=== PATIENT | male | born 1955 | race African-American/Black ===

== ENCOUNTER 2017-08-22 05:54 | Inpatient (IN) | payer MEDICAID ==
[~2017-08-22] VITALS: Ht 185.4 cm; Wt 73.5 kg
--- NOTE | ~2017-08-22 | PR ---
[place], [place] PROGRESS NOTE NAME: SEBAS HOPKINS UNIT #: [id number] ROOM: 314 DOCTOR: TIFFANY CORONEL MD BIRTHDATE: [birth year] DOS: 08/27/2017 CHIEF COMPLAINT: "I am feeling better, thank you." SUMMARY OF THE VISIT: The patient was interviewed in the dining area where he was sitting eating breakfast. He stopped and engaged readily in conversation. He reported that he is feeling better, that his mood is brighter and that the auditory hallucinations have almost completely abated. He does report tolerating the current medication regimen well. He is aware that his family is hoping that he gets into [facility] to address his substance abuse issues and is willing to wait to see if this is something that can occur rapidly. Otherwise, he is feeling ready for discharge. MENTAL STATUS EXAMINATION: He is alert and oriented to person, place and time. Mood does seem to be strongly trending towards euthymia. Affect is much more appropriate. There is no symptom suggestive of glenn or hypomania. There are no acute psychotic symptoms. He is tolerating the current medication regimen well. There are no suicidal thoughts, homicidal thoughts or any self-injurious thoughts. Memory is intact. PLAN: Maintain his current psychotropic regimen. We will explore the possibility of placement into [facility] or similar substance abuse program, discharging then when psychiatrically stable. TIFFANY CORONEL MD CM:PNTRANS [id number] TIFFANY CORONEL MD 08/27/17 1002 interface
--- NOTE | ~2017-08-22 | PR ---
[place], [place] PROGRESS NOTE NAME: SEBAS HOPKINS UNIT #: [id number] ROOM: 314 DOCTOR: TIFFANY CORONEL MD BIRTHDATE: [birth year] DOS: 08/26/2017 CHIEF COMPLAINT: "I am feeling so much better, thank you." SUMMARY OF THE VISIT: The patient was interviewed in the dining area where he was sitting at a table with many male peers. He stopped and engaged in conversation. He reports that he is sleeping solidly through the night, waking up refreshed. He is not feeling any kind of sedation or somnolence. His appetite also has improved. He feels that the negative thoughts in his head have dissipated as have the auditory hallucinations. He convincingly denies medication side effects and notes no sedation, somnolence, extrapyramidal symptoms or tardive dyskinesia. MENTAL STATUS: He is alert and oriented. Mood does seem to be strongly trending towards euthymia. Affect is much more appropriate. There is no glenn or hypomania. There are no gross psychotic symptoms. Memory for the most part is intact. PLAN: I will maintain his current psychotropic regimen, continue to engage in individual and meza milieu activity. We will plan to discharge then when psychiatrically stable. TIFFANY CORONEL MD CM:PNTRANS 0923 TIFFANY CORONEL MD 08/26/17 0959 interface
--- NOTE | ~2017-08-22 | DS ---
[place], [place] DISCHARGE SUMMARY NAME: SEBAS HOPKINS UNIT #: [id number] ROOM: 314 DOCTOR: TIFFANY CORONEL MD BIRTHDATE: [birth year] DOS: 08/28/2017 CHIEF COMPLAINT: "I have been depressed and the voices have been pretty bad. HISTORY OF PRESENT ILLNESS: This is a 61-year-old black male who presented to [facility] Emergency Room with a chief complaint of increased depression as well as persistent auditory hallucinations, some of these hallucinations have been command in nature with the voices stating that he needed to hurt himself or others. The patient states that the depression has worsened over the last month prior to this admission. The patient sees Dr. Mathis at [facility] in the [facility]. Most recently, he has been prescribed Klonopin and Zyprexa, but states that these medicines are no longer effective for him. He endorsed poor sleep with difficulty falling asleep, sleep continuity disturbance, senior consulting manager awakening, anergia, anhedonia, hopeless, helpless feelings, crying spells and inability to cope. In the morning he does not feel rested. He feels constantly tired. The voices are persistent throughout the day as well. They read what he reads and comment on what he is doing. They are very bothersome to him. He is admitted now to rule out any organic factors, to stabilize on medication and then to return to the least restrictive environment. SUMMARY OF HOSPITAL COURSE: The patient was admitted to the unit where his Klonopin and Zyprexa were discontinued due to ineffectiveness. Invega 6 mg in the morning and Remeron 15 mg at night were started to combat the depression and the psychotic symptoms. He tolerated the medications well and almost immediately had an improvement in his sleep pattern. He slept soundly through the night. Initially, he woke up somewhat fatigued, but this quickly passed over the next couple of days. The Invega impacted positively on the hallucinations and at first the frequency and intensity of the hallucinations lessened. They eventually dissipated completely by the time he was ready for discharge. He had tolerated both of the medications well and felt dramatically improved on them, ready to return back home. Family through social work faculty member did request that a consult be made or a referral be made to [facility]. This was done prior to discharge. The patient was discharged then back to [place]. He will follow up also with the [facility] and Dr. Mathis. MENTAL STATUS AT DISCHARGE: The patient is alert and oriented to person, place and time. Mood is euthymic. Affect appropriate. There is no glenn or hypomania. There are no overt auditory or visual hallucinations. No delusions or paranoia. Short, intermediate and long-term memories are intact. FINAL DIAGNOSIS: Major depression, recurrent with psychotic features. PLAN: All of his prescriptions have been e scribed to [facility]. He will have followup at [facility] services in [place]. Medically and psychiatrically he is stable. Psychosocially his needs have been adequately met. [place], [place] DISCHARGE SUMMARY NAME: SEBAS HOPKINS UNIT #: [id number] ROOM: [facility] DOCTOR: TIFFANY CORONEL MD BIRTHDATE: [birth year] TIFFANY CORONEL MD CM:DISCHARG [id number] TIFFANY CORONEL MD 08/28/17 1019 interface
--- NOTE | ~2017-08-22 | PR ---
[place], [place] PROGRESS NOTE NAME: SEBAS HOPKINS UNIT #: [id number] ROOM: 314 DOCTOR: TIFFANY CORONEL MD BIRTHDATE: [birth year] DOS: 08/25/2017 CHIEF COMPLAINT: "I feel better. I do not have any more of that diarrhea, thank you." SUMMARY OF THE VISIT: The patient was interviewed as he was resting quietly in bed. He did report to me this morning that he slept through the night, woke up refreshed, got up, had breakfast and that is now lying back down ready for the day to begin. He convincingly denies medication side effects and states that he is feeling better from a psychiatric standpoint as well. His mood is improving and the voices have lessened in frequency and intensity. He denies sedation, somnolence, extrapyramidal symptoms or tardive dyskinesia. MENTAL STATUS: He is alert and oriented. Mood does seem to be trending towards euthymia. Affect is more appropriate. There is no symptom suggestive of glenn or hypomania. There are no overt auditory or visual hallucinations. No delusions, no paranoia. Short, intermediate, and long-term memory are intact. PLAN: I will maintain his current psychotropic regimen, continue to engage in individual and meza milieu activity, returning to the least restrictive environment when stable. TIFFANY CORONEL MD CM:PNTRANS [id number] TIFFANY CORONEL MD 08/25/17 0935 interface
--- NOTE | ~2017-08-22 | PR ---
[place], [place] PROGRESS NOTE NAME: SEBAS HOPKINS UNIT #: [id number] ROOM: 314 DOCTOR: TIFFANY CORONEL MD BIRTHDATE: [birth year] DOS: 08/23/2017 CHIEF COMPLAINT: "I think I feel a little better." SUMMARY OF THE VISIT: The patient was interviewed after he completed a shower and he was getting dressed. He stopped and engaged in conversation and reported that he did sleep better last night and feels more rested this morning. He ate a good breakfast. He reports that the frequency and intensity of the voices in his head has lessened and he is more comfortable during the day. He is still depressed, but feels positive that he is getting better. He denies any medication side effects. MENTAL STATUS: He is alert and oriented to person, place and time. Mood does seem to be trending towards euthymia. Affect is more appropriate. There is no glenn or hypomania. There is no significant worsening of auditory hallucinations. In fact, they seem to be lessening. Memory for the most part is intact. PLAN: I will maintain his current dose of Remeron and Invega, continue to engage in individual and meza milieu activity with the ultimate plan to return to the least restrictive environment when psychiatrically stable. TIFFANY CORONEL MD CM:PNTRANS 1013 [id number] TIFFANY CORONEL MD 08/23/17 1021 interface
--- NOTE | ~2017-08-22 | WRIGHTHP ---
[place], [place] PATIENT HISTORY AND PHYSICAL EXAM NAME: SEBAS HOPKINS UNIT #: [id number] ROOM: 314 DOCTOR: TIFFANY CORONEL MD BIRTHDATE: [birth year] DOS: 08/22/2017 INITIAL PSYCHIATRIC EVALUATION CHIEF COMPLAINT: "Yeah, I have been so depressed and the voices have been pretty bad." HISTORY OF PRESENT ILLNESS: This is a 61-year-old black male who presented to [facility] Emergency Room with a chief complaint of increased depression as well as auditory hallucinations, some of the command nature with the voices stating that he was going to hurt himself or others. The patient did state that the depression was worsening over the last month prior to this admission. He does see Dr. Mathis at [facility] and most recently was prescribed Klonopin and Zyprexa, but states that these medications were no longer working. He endorsed poor sleep with difficulty falling asleep, sleep continuity disturbance, alternative education teacher awakening, anergia, anhedonia, hopeless, helpless feelings, crying spells and inability to cope. He reports that in the morning when he wakes up, he feels somewhat rested, but is not at his baseline level. He also endorses currently voices that read what he reads and at times comment on what he does, they will tell him to do things. He was somewhat hesitant to share this with me, but he did share with nursing that he does hear command hallucinations, but is able to resist the commands. He reports no previous psychiatric hospitalizations. He is admitted now to rule out organic factors, to stabilize on medication, to engage in individual and meza milieu activity with the ultimate plan to return to the least restrictive environment when psychiatrically stable. MENTAL STATUS: Upon admission, the patient is alert and oriented. Mood does seem to be very depressed. He has a rather constricted range of affect. He endorses auditory hallucinations, some command, but does not feel he can act on them. He also endorses multiple neurovegetative symptoms. There is no glenn or hypomania noted. Memory for the most part seems intact. DIAGNOSIS: Major depression, recurrent with psychotic features. PLAN: I have discontinued his Klonopin and his Zyprexa due to ineffectiveness. I will start him on Invega 6 mg in the morning and Remeron 15 mg at night to combat the depression and the psychotic symptomatology. We will engage in individual and meza milieu activity with the ultimate plan to return to the least restrictive environment when psychiatrically stable. [place], [place] PATIENT HISTORY AND PHYSICAL EXAM NAME: SEBAS HOPKINS UNIT #: [id number] ROOM: [facility] DOCTOR: TIFFANY CORONEL MD BIRTHDATE: [birth year] TIFFANY CORONEL MD CM:HISPHYS:PATIENT HISTORY AND PHYSICAL EXAMINATION [id number] TIFFANY CORONEL MD 08/23/17 1055 interface
--- NOTE | ~2017-08-22 | PR ---
[place], [place] PROGRESS NOTE NAME: SEBAS HOPKINS UNIT #: [id number] ROOM: 314 DOCTOR: TIFFANY CORONEL MD BIRTHDATE: [birth year] DOS: 08/24/2017 CHIEF COMPLAINT: "I feel better, but I had diarrhea all night." SUMMARY OF THE VISIT: The patient was interviewed as he rested quietly in bed. He reports that psychiatrically he is feeling better and he is sleeping better, eating better and his mood does seem to be more stable. He did complain, however, of having persistent diarrhea throughout the night and this was rather bothersome. His stomach is a little queasy this morning, but he is not grossly nauseated. MENTAL STATUS: He is alert and oriented. Mood does seem to be trending towards euthymia. Affect is more appropriate. There is no glenn or hypomania. There are no overt auditory or visual hallucinations, delusions or paranoia. Short, intermediate and long-term memory are intact. PLAN: I will continue his current psychotropic regimen, continue to engage in individual and meza milieu activity, returning to the least restrictive environment when psychiatrically stable. TIFFANY CORONEL MD CM:PNTRANS [id number] TIFFANY CORONEL MD 08/24/17 0930 interface
[2017-08-22] MEDS ORDERED: VITAMIN D31000 UNI1 PO (06:24)
[2017-08-22] MEDS ORDERED: NORVASC5 MG PO (06:27)
[2017-08-22] MEDS ORDERED: OMEPRAZOLE20 M2 PO (06:28)
[2017-08-22] MEDS ORDERED: CLONAZEPAM0.5 M2 PO (06:28)
[2017-08-22] MEDS ORDERED: ZYPREXA20 M1 PO (06:29)
[2017-08-22 09:05] VITALS: BP 148/90
[2017-08-22 10:05] LABS: BASO % 0.2 % (0.0-1.0); EOS # 0.1 10*3/uL (0.0-0.4); EOS % 1.7 % (1.0-4.0); HEMATOCRIT 50.6 % (42.0-52.0); LYMPH # 1.5 10*3/uL (1.3-4.4); LYMPH % 28.9 % (27.0-41.0); MEAN CELL VOLUME 95.7 fl (80.0-94.0); MEAN CORPUSCULAR HGB 32.1 pg (27.0-31.0); MEAN CORPUSCULAR HGB CONC 33.6 g/dl (33.0-37.0); MEAN PLATELET VOLUME 9.5 fl (9.6-12.3); MONO # 0.6 10*3/uL (0.1-1.0); MONO % 10.6 % (3.0-9.0); NEUT % 58.2 % (47.0-73.0); PLATELET COUNT AUTOMATED 206 10*3/uL (130-400); RED BLOOD COUNT 5.29 10*6/uL (4.50-5.90); RED CELL DISTRI WIDTH 14.8 % (0-14.5); WHITE BLOOD COUNT 5.2 10*3/uL (4.8-10.8)
[2017-08-22 10:18] LABS: ALBUMIN 3.5 gm/dl (3.1-4.5); ALKALINE PHOSPHATASE 97 U/L (45-117); BUN 8 mg/dl (7-24); CHLORIDE 102 mmol/L (98-107); CHOLESTEROL 151 mg/dL (<200); CREATININE 0.75 mg/dL (0.70-1.30); HDL CHOLESTEROL 80 mg/dl (40-60); LDL CHOLESTEROL 59 mg/dL (9-159); POTASSIUM 3.9 mmol/L (3.5-5.1); SGOT/AST 18 IU/L (3-35); SGPT/ALT 20 U/L (12-78); SODIUM 139 mmol/L (136-145); TRIGLYCERIDES 59 mg/dl (<150); VLDL CHOLESTEROL 12 mg/dL (6-40)
[2017-08-22 10:24] LABS: THYROID STIM HORMONE (HS) 0.822 uIU/ml (0.358-4.75)
[2017-08-22 12:03] LABS: VITAMIN D, 25-HYDROXY 21.1 ng/mL (30-100)
[2017-08-22 20:18] VITALS: BP 117/51
[2017-08-23 08:02] VITALS: BP 139/76
[2017-08-23 20:00] VITALS: BP 117/80
[2017-08-24 07:50] VITALS: BP 126/82
[2017-08-24 20:15] VITALS: BP 126/70
[2017-08-25 07:48] VITALS: BP 122/61
[2017-08-25 20:00] VITALS: BP 128/72
[2017-08-26 07:41] VITALS: BP 101/73
[2017-08-26 20:00] VITALS: BP 112/83
[2017-08-27 08:08] VITALS: BP 133/73
[2017-08-27 21:42] VITALS: BP 115/59
[2017-08-28 08:05] VITALS: BP 130/70
[2017-08-28] MEDS ORDERED: MIRTAZAPINE15 M2 PO (10:02)
[2017-08-28] MEDS ORDERED: PALIPERIDONE ER6 MG PO (10:02)
== END 2017-08-28 16:05 | disposition home or self-care (01) | DRG 885 ==
LOC: 3N 05:54
PROVIDERS: Psychiatry & Neurology Psychiatry
DX: F33.3 Major depressive disorder, recurrent, severe with psychotic symptoms (principal); R45.851 Suicidal ideations; D75.89 Other specified diseases of blood and blood-forming organs; F17.200 Nicotine dependence, unspecified, uncomplicated; E55.9 Vitamin D deficiency, unspecified; I10 Essential (primary) hypertension; K21.9 Gastro-esophageal reflux disease without esophagitis; G47.00 Insomnia, unspecified; Z71.6 Tobacco abuse counseling; Z79.899 Other long term (current) drug therapy